=== PATIENT | male | born 1965 | race Caucasian/White ===

== ENCOUNTER 2016-09-03 02:00 | Inpatient (IN) | payer MEDICARE, OTHER ==
--- NOTE | ~2016-09-03 | PN ---
Unit #: [id number] #: [id number] Patient: JODI VENTURA [id number] [facility] [address] [place] [address] [id number] MR#: [id number] NAME: JODI VENTURA ROOM: P130 Age: 51 Sex: M Admission Date: 09/03/2016 : 1965 Attending Physician: dEer Vilalfuerte M.D. Admitting Physician: Eder Villafuerte M.D. Primary Care Physician: Primary Care Physician Tami BAPTISTE PROGRESS NOTES DATE 09/04/2016 DISCUSSION The patient is abed today. He is seclusive to room. He continues to complain of dysphoric mood and suicidal ideation as well as auditory hallucinations. He is complaining of difficulty breathing and will be restarted on his previously prescribed asthma inhalers. Dictated by... Eder Villafuerte M.D. CB/marisol TD: 09/04/2016 14:27 JOB #: [id number] EMILE DAN NOTES Page 1 of 1 X Eder Villafuerte MD PROGRESS NOTE
--- NOTE | ~2016-09-03 | PA ---
Unit #: [id number] #: [id number] Patient: JODI VENTURA [id number] [facility] [place] [address] [id number] MR#: [id number] NAME: JODI VENTURA. ROOM: 30 Age: 51 Sex: M Admission Date: 09/03/2016 : 1965 Date of Assessment: 09/03/2016 Attending Physician: Eder Villafuerte M.D. Admitting Physician: Eder Villafuerte M.D. Primary Care Physician: Primary Care Physician No PSYCHIATRIC ASSESSMENT REASON FOR ADMISSION The patient is a 51-year-old white male admitted to the [address] [place] [address] with worsening symptoms of psychosis and self mutilatory impulses. CHIEF COMPLAINT They changed my medicine. INFORMANT The patient, reliability if fair. HISTORY OF PRESENT ILLNESS The patient is a 51-year-old white male who was admitted to the [address] [place] [address] after he presented to this facility voicing positive suicidal ideation. The patient reports that they have "changed his medications" at [facility] and that he is now taking Seroquel, Zyprexa and Risperdal Consta. He has been taken off antidepressant medication per his report. The patient reports intrusive thoughts telling him to harm himself or set himself on fire and has been reporting increasing suicidal ideation and depressed mood. The patient denies abuse of any psychoactive substances. He was last discharged from this facility on 05/22/2016. For more complete history of present illness please refer to previous dictated noted. PAST PSYCHIATRIC HISTORY Reviewed no changes. PAST MEDICAL HISTORY Reviewed no changes. MEDICATIONS 1. Seroquel 2. Protonix 3. Restoril 4. Zyprexa 5. Cymbalta 6. Oxycodone These medications were ordered at the time of the patient's last hospitalization. ALLERGIES Butyrophenones (Haldol) FAMILY HISTORY Unit #: [id number] #: [id number] Patient: JODI VENTURA Reviewed no changes. SOCIAL HISTORY Reviewed no changes. MENTAL STATUS EXAMINATION At this time reveals the patient to be a thin white male appearing his stated age. He is in no apparent physical distress at the time of examination. He is awake, alert, and oriented in all spheres. His mood is dysphoric. His affect is flat. Speech is generally relevant and coherent. There are no gross deficits in memory or cognition noted. Intelligence is judged to be in the average range based on fund of knowledge. The patient is generally cooperative throughout the interview. He is currently endorsing positive suicidal ideation. He denies homicidal ideation. He reports positive command hallucinations. His judgement and insight appear to be significantly impaired. ASSETS AND LIABILITIES ASSETS: To be assessed. LIABILITIES: Lack of resources. ADMITTING DIAGNOSES Chronic paranoid schizophrenia verses schizoaffective disorder, chronic pain. PSYCHIATRIC PLAN/TREATMENT GOALS We will restart the medications as previously prescribed including Seroquel, Protonix, Protonix, Restoril as Zyprexa, Cymbalta and oxycodone. I do not see any justification for having the patient on three separate secondary generation antipsychotics as the brain has only so many dopaminergic receptors. I will restart Cymbalta in hopes of addressing the patient's intrusive thoughts and depressed mood and suicidal precautions remain in place. ESTIMATED LENGTH OF STAY Five to seven days. Dictated by... Eder Villafuerte M.D. MALIK/khushboo TD: 09/04/2016 01:53 JOB #: [id number] Unit #: [id number] #: [id number] Patient: JODI VENTURA PSYCHIATRIC ASSESSMENT Page 1 of 1 X Eder Villafuerte MD X PSYCHIATRIC ASSESSMENT
--- NOTE | ~2016-09-03 | PN ---
Unit #: [id number] #: [id number] Patient: JODI VENTURA [id number] [facility] [address] [place] [address] [id number] I MR#: [id number] NAME: JODI VENTURA ROOM: P130 Age: 51 Sex: M Admission Date: 09/03/2016 : 1965 Attending Physician: Eder Villafuerte M.D. Admitting Physician: Eder Villafuerte M.D. Primary Care Physician: Primary Care Physician Tami BAPTISTE PROGRESS NOTES DATE 09/09/2016 DISCUSSION The patient states that he feels "remarkably better" with reinitiation of Risperdal Consta. He is reporting suicidal ideation and is significantly brighter. He does look very much improved and should he sustain progress discharge will take likely place tomorrow. Dictated by... Eder Villafuerte M.D. CB/khushboo TD: 09/10/2016 03:45 JOB #: [id number] [facility] PROGRESS NOTES Page 1 of 1 X Eder Villafuerte MD X PROGRESS NOTE
--- NOTE | ~2016-09-03 | PN ---
Unit #: [id number] #: [id number] Patient: JODI VENTURA [id number] [facility] [address] [place] [address] [id number] I MR#: [id number] NAME: JODI VENTURA ROOM: P130 Age: 51 Sex: M Admission Date: 09/03/2016 : 1965 Attending Physician: Eder Villafuerte M.D. Admitting Physician: Eder Villafuerte M.D. Primary Care Physician: Primary Care Physician Tami DAN NOTES DATE 09/08/2016 DISCUSSION The patient remains abed and seclusive to room. He continues to complain of nausea. We await his administration of Risperdal Const to see if there would be any reduction in his psychotic symptoms with this rather usual polypharmacy. Dictated by... Eder Villafuerte M.D. CB/bzg TD: 09/08/2016 14:35 JOB #: [id number] EMILE PROGRESS NOTES Page 1 of 1 X Eder Villafuerte MD PROGRESS NOTE
--- NOTE | ~2016-09-03 | PN ---
Unit #: [id number] #: [id number] Patient: JODI VENTURA [id number] [facility] [address] [place] [address] [id number] I MR#: [id number] NAME: JODI VENTURA ROOM: P130 Age: 51 Sex: M Admission Date: 09/03/2016 : 1965 Attending Physician: Eder Villafuerte M.D. Admitting Physician: Eder Villafuerte M.D. Primary Care Physician: Primary Care Physician Tami BAPTISTE PROGRESS NOTES DATE 09/07/2016 DISCUSSION The patient remains abed and continues to complain of severely depressed mood, dysphoric and suicidal ideation. He requests re-initiation of Risperdal Consta. I have spoken with the patient regarding the fact that this will represent 3 separate second generation antipsychotics which he will be using. However, the patient persists in his belief that he needs this medication to address his ongoing seemingly refractory auditory hallucinations. We will go ahead and order Risperdal Consta to continue with the patient's other 2 second generation antipsychotics. Dictated by... Eder Villafuerte M.D. CB/miki TD: 09/07/2016 19:54 JOB #: [id number] EMILE DAN NOTES Page 1 of 1 X Eder Villafuerte MD PROGRESS NOTE
--- NOTE | ~2016-09-03 | DS ---
Unit #: [id number] #: [id number] Patient: JODI VENTURA [id number] [facility] [address] [place] [address] [id number] I MR#: [id number] NAME: JODI VENTURA ROOM: P130 Age: 51 Sex: M Admission Date: 09/03/2016 : 1965 Discharge Date: 09/11/2016 Attending Physician: Eder Villafuerte M.D. Primary Care Physician: Primary Care Physician No DISCHARGE SUMMARY REASON FOR ADMISSION The patient is a 51-year-old white male, admitted with recurrence of suicidal ideation and self-mutilatory impulses, and psychosis. HOSPITAL COURSE The patient was admitted to the [address] [place] [address] unit and restarted on previously prescribed medications including Seroquel, Protonix, Restoril, Cymbalta, oxycodone, and Zyprexa. The patient requested also that he will be restarted on Risperdal Consta. This physician was initially hesitant to place the patient on three antipsychotics; however, the patient remained very dysphoric, flat, and hopeless. He stated that he felt as though, re-initiation of Risperdal Consta would be helpful and so this physician did and ordered this medication be added. On 09/07/2016, the patient's response to that medication was nearly miraculous as he showed great brightening in mood and affect. By 09/11/2016, the patient was in bright spirits and requested discharge. It was so ordered. FINAL DIAGNOSES Chronic paranoid schizophrenia, chronic pain, gastroesophageal reflux disease. DISPOSITION ON DISCHARGE The patient is discharged on the following medications: Seroquel 200 mg b.i.d. and 400 mg at bedtime for psychosis, Protonix 40 mg daily for GERD, Restoril 30 mg at h.s. p.r.n. insomnia, Zyprexa 30 mg at h.s. for psychosis, Cymbalta 90 mg daily for depression, oxycodone 10/325 one tablet q.12 hours p.r.n. pain, Risperdal Consta 50 mg for psychosis, last dose given on 09/07/2016. FOLLOWUP The patient will follow through the auspices of [facility]. PROGNOSIS His prognosis is considered fair. Dictated by... Eder Villafuerte M.D. CB/kari Unit #: [id number] #: [id number] Patient: JODI VENTURA TD: 09/11/2016 16:25 JOB #: [id number] DISCHARGE SUMMARY Page 1 of 1 X Eder Villafuerte MD X DISCHARGE SUMMARY
--- NOTE | ~2016-09-03 | PN ---
Unit #: [id number] #: [id number] Patient: JODI VENTURA [id number] [facility] [address] [place] [address] [id number] I MR#: [id number] NAME: JODI VENTURA ROOM: P130 Age: 51 Sex: M Admission Date: 09/03/2016 : 1965 Attending Physician: Eder Villafuerte M.D. Admitting Physician: Eder Villafuerte M.D. Primary Care Physician: Primary Care Physician Tami BAPTISTE PROGRESS NOTES DATE 09/10/2016 DISCUSSION The patient reports that he is feeling better and appears to be nearing baseline should he sustain progress discharge could take place as early as tomorrow. Dictated by... Eder Villafuerte M.D. CB/khushboo TD: 09/10/2016 23:00 JOB #: [id number] [facility] PROGRESS NOTES Page 1 of 1 X Eder Villafuerte MD X PROGRESS NOTE
--- NOTE | ~2016-09-03 | HP ---
Unit #: [id number] #: [id number] Patient: SHELDON VENTURA [id number] [place] [address] [id number] I MR#: [id number] NAME: SHELDON VENTURA. ROOM: P130 Age: 51 Sex: M Admission Date: 09/03/2016 : 1965 Attending Physician: Eder Villafuerte M.D. Admitting Physician: Eder Villafuerte M.D. Primary Care Physician: Primary Care Physician No HISTORY AND PHYSICAL HISTORY OF PRESENT ILLNESS Sheldon is a 51 year old admitted to [address] [place] [address] with depression verbalizing wanting to hurt himself. He has had numerous admissions to this facility. PAST MEDICAL HISTORY 1. COPD. 2. High blood pressure. PAST SURGICAL HISTORY 1. Appendectomy. 2. Rhinoplasty. 3. Open abdomen, exploratory. 4. Oral allergies. ALLERGIES No known drug allergies. SOCIAL HISTORY Smokes one pack per day. Denies alcohol and illicit drug use. FAMILY HISTORY Medically noncontributory. REVIEW OF SYSTEMS CONSTITUTIONAL: No fever or chills. HEENT: Denies any sore throat, ear pain or runny nose. CARDIOVASCULAR: Denies chest pain, irregular heart rhythm or palpitations. CHEST: Denies shortness of breath or cough. No hemoptysis. GASTROINTESTINAL: Denies nausea, vomiting, diarrhea or chronic constipation. ENDOCRINE: Denies history of increased thirst or urination. No recent significant weight loss or gain. GENITOURINARY: Denies dysuria, frequency, or hematuria. SKIN: Denies any rashes. HEMATOLOGIC: Denies history of increased bleeding or bruising. MUSCULOSKELETAL: Denies any hot, swollen joints. No generalized muscle pain. NEUROLOGIC: Denies problems with vision or speech. No frequent, severe headaches. No numbness, tingling or weakness in any extremities. Denies loss of bladder or bowel control. CURRENT MEDICATIONS 1. Cymbalta 90 mg q. day. Unit #: [id number] #: [id number] Patient: SHELDON VENTURA 2. Protonix 40 mg q. day. 3. Zyprexa 20 mg q.h.s. 4. Zyprexa Zydis 10 mg q.h.s. 5. Temazepam 30 mg q.h.s. 6. Seroquel 200 mg t.i.d., 400 mg q.h.s. 7. Percocet 10/325, 1 tab q. 12 hours p.r.n. 8. Milk of Magnesia p.r.n. 9. Maalox p.r.n. 10. Tylenol p.r.n. 11. Nicotine patch 14 mg q. day. PHYSICAL EXAMINATION GENERAL: Alert, thin. No apparent distress. VITAL SIGNS: Blood pressure 132/92, heart rate 80, respirations 16, and temperature 98.6. WEIGHT: 130. HEIGHT: 5 feet 10 inches. SKIN: Warm and dry without rash or lesion. HEENT: Normocephalic. TMs not viewed. Oral and nasal passages clear. Conjunctivae clear. PERRLA. EOMs intact. NECK: Supple without lymphadenopathy or thyromegaly. HEART: Regular rate and rhythm without murmur. LUNGS: Clear. ABDOMEN: Soft, nontender. : Not done. EXTREMITIES: No evidence of cyanosis, clubbing or edema. Moves all without focal deficit. NEUROLOGICAL: Grossly within normal limits. Cranial Nerves: II: Visual cornejo are intact. III, IV AND : Extraocular movements are intact. Pupils are equal, round and reactive to light. V: Facial sensation is grossly normal. VII: Facial movements and expression are normal. VIII: Auditory acuity grossly intact. IX, X: Uvula is midline. Phonation is normal. XI: Patient shrugs shoulders and turns head normally. XII: Tongue protrudes in the midline. Sensory and Motor Function: Sensory and motor sensation is grossly normal. Motor: moves all extremities well. Coordination: Gait is normal. Deep Tendon Reflexes: Intact. IMPRESSION Psychiatric admission. RECOMMENDATIONS PSYCHIATRIC: Per psychiatrist. MEDICAL: I see no contraindication to participate in this facility's activities. MEDICAL PROGNOSIS Good. MEDICAL CONDITION Stable. Dictated by... Ratna Ross P.A.-C. for Unit #: [id number] #: [id number] Patient: SHELDON VENTURA Elsi Foley/marisol TD: 09/04/2016 11:20 JOB #: [id number] HISTORY AND PHYSICAL Page 1 of 1 X Ratna Ross HISTORY AND PHYSICAL
--- NOTE | ~2016-09-03 | PN ---
Unit #: [id number] #: [id number] Patient: JODI VENTURA [id number] [facility] [address] [place] [address] [id number] I MR#: [id number] NAME: JODI VENTURA ROOM: P130 Age: 51 Sex: M Admission Date: 09/03/2016 : 1965 Attending Physician: Eder Villafuerte M.D. Admitting Physician: Eder Villafuerte M.D. Primary Care Physician: Primary Care Physician Tami BAPTISTE PROGRESS NOTES DATE 09/06/2016 DISCUSSION The patient remains seclusive to room and today complains of significant nausea. We will initiate p.rclaire Badillo to address these symptoms. I have encouraged the patient to increase his participation within the therapeutic milieu. He continues to endorse hopelessness and suicidal ideations as well as ongoing auditory hallucinations. Dictated by... Eder Villafuerte M.D. CB/miki TD: 09/06/2016 15:45 JOB #: [id number] EMILE PROGRESS NOTES Page 1 of 1 X Eder Villafuerte MD X PROGRESS NOTE
--- NOTE | ~2016-09-03 | PN ---
Unit #: [id number] #: [id number] Patient: JODI VENTURA [id number] [facility] [address] [place] [address] [id number] I MR#: [id number] NAME: JODI VENTURA ROOM: P130 Age: 51 Sex: M Admission Date: 09/03/2016 : 1965 Attending Physician: Eder Villafuerte M.D. Admitting Physician: Eder Villafuerte M.D. Primary Care Physician: Primary Care Physician Tami BAPTISTE PROGRESS NOTES DATE 09/05/2016 DISCUSSION The patient remains seclusive to room and continues to endorse positive auditory hallucinations and suicidal thinking. We continue current aggressive pharmacotherapy. Dictated by... Eder Villafuerte M.D. CB/miki TD: 09/05/2016 15:13 JOB #: [id number] [facility] PROGRESS NOTES Page 1 of 1 X Eder Villafuerte MD X PROGRESS NOTE
== END 2016-09-11 12:00 | disposition home or self-care (01) | DRG 885 ==
LOC: P1S 09:17
DX: F20.0 Paranoid schizophrenia (principal); R45.851 Suicidal ideations; G89.29 Other chronic pain; Z88.8 Allergy status to other drugs, medicaments and biological substances; J44.9 Chronic obstructive pulmonary disease, unspecified; F17.210 Nicotine dependence, cigarettes, uncomplicated
CPT/HCPCS: 36415; 71010; 80048; 80076; 80307; 81003; 82553; 84484; 85025; 85379; 93005; 99285; G0480; J2794

== ENCOUNTER 2016-10-24 17:21 | Inpatient (IN) | payer MEDICARE, OTHER ==
[~2016-10-24] VITALS: Ht 177.8 cm; Wt 59.0 kg
--- NOTE | ~2016-10-24 | PN ---
Unit #: [id number] #: [id number] Patient: SHELDON VENTURA [id number] [facility] [address] [place] [address] [id number] I MR#: [id number] NAME: SHELDON VENTURA. ROOM: P131 Age: 51 Sex: M Admission Date: 10/24/2016 : 1965 Attending Physician: Phu Solis M.D. Admitting Physician: Phu Solis M.D. Primary Care Physician: Generic Doctor Not In System [facility] PROGRESS NOTES DATE 10/28/2016 DISCUSSION Sheldon continues to be in bed for much of the day. Staff reports that he is occasionally seeking additional medications and is otherwise noncooperative with groups and activities. His mood is depressed with a flat affect and slow speech. He reports ongoing suicidal thoughts and psychosis. ASSESSMENT Schizoaffective order. PLAN Continue current treatment plan. Dictated by... Elsi Larose/khushboo TD: 10/29/2016 23:31 JOB #: [id number] [facility] PROGRESS NOTES Page 1 of 1 X Phu Solis MD X PROGRESS NOTE
--- NOTE | ~2016-10-24 | DS ---
Unit #: [id number] #: [id number] Patient: SHELDON LLAMAS [id number] [facility] [address] [place] [address] [id number] I MR#: [id number] NAME: SHELDON LLAMAS. ROOM: P131 Age: 51 Sex: M Admission Date: 10/24/2016 : 1965 Discharge Date: 10/29/2016 Attending Physician: Phu Solis M.D. Primary Care Physician: Generic Doctor Not In System DISCHARGE SUMMARY REASON FOR ADMISSION Mr. Llamas is a 51-year-old man well known to me from a previous admission who was dropped off by his father after he said he "just wanted to end my life." He was admitted for stabilization. DIAGNOSTIC STUDIES LABORATORY DATA: Please see hospital chart. HOSPITAL COURSE Sheldon was admitted and placed on suicide precautions. He was restarted on his home medications one they were all confirmed and Cymbalta was increased to 90 mg daily. He participated briefly in unit groups and activities but was able to contract for safety on the date of discharge. His speech was more spontaneous, mood better and a brighter affect. DISCHARGE DIAGNOSES Wister I Schizoaffective disorder, bipolar type. Wister II No diagnosis. Wister III History of chronic pain. Wister IV Wister V FOLLOWUP CARE Instructed the patient to follow up with [facility] for mental healthcare and primary care physician. DISCHARGE MEDICATIONS 1. Cymbalta 90 mg daily for depression. Other medications continued unchanged were: 2. Zyprexa 30 mg at bedtime for psychosis. 3. Seroquel 200 mg twice daily and 400 mg at bedtime for psychosis. 4. Protonix 40 mg daily for GERD. 5. Proventil inhaler two puffs every 4 hours as needed for shortness of air. 6. Metronidazole ointment applied to skin once daily for rosacea. 7. Percocet 10/325 by mouth twice daily as needed for pain. CONDITION AT DISCHARGE Improved. PROGNOSIS Fair to good. Unit #: [id number] #: [id number] Patient: SHELDON LLAMAS DIET AND ACTIVITY Per primary care doctor. Dictated by... Phu Solis M.D. [facility]/noreen TD: 10/31/2016 12:52 JOB #: [id number] DISCHARGE SUMMARY Page 1 of 1 X Phu Solis MD DISCHARGE SUMMARY
--- NOTE | ~2016-10-24 | A ---
[facility] DATE: 10/26/16 Patient: JODI VENTURA Physician: JORDY Address: [address] [place] [address] [facility]ACE Room/Bed: [address] [place] [address], Zip: [place] [address] Admit Date: 10/24/16 Date of : [birth year] Height: 5 10 Weight: [phone] NUTRITIONAL ASSESSMENT: REASON: LOW BMI (18.5) PATIENT ADMITTED FOR SI PMH: COPD, HTN, SPINAL STENOSIS Anthropometrics: HT: 70", WT: 129#, BMI: 18.5, %IBW: 78 Labs: 10/25/16- ALL NUTRITIONAL LABS WNL Meds: ZYPREXA, CYMBALTA, SEROQUEL, PROTONIX, PERCOCET Assessment: PATIENT IS A 51 Y/O MALE ADMITTED FOR SI. PATIENT IS CURRENTLY UNEMPLOYED, ON DISABILITY, LIVES WITH PARENTS, AND DENIES ANY SUBSTANCE ABUSE. HE HAS VERY FREQUENT ADMISSIONS TO THIS FACILITY. RD HAS ASSESSED PATIENT 9X IN THE LAST YEAR- NOTES REVIEWED. UPON ADMIT PATIENT STATED A POOR APPETITE WITH A 30# WEIGHT LOSS X MONTHS, AND HE HAS NOT BEEN SLEEPING. WEIGHT HX PER [facility] SHOWS NO WEIGHT CHANGE X 1 MONTH AND NO SIGNIFICANT WEIGHT CHANGES IN THE LAST 10 YERAS. HIS UBW SEEMS TO BE ~130-140#. NURSING REPORTS FAIR PO INTAKES. THERE ARE NO SKIN OR GI ISSUES NOTED ATT. CURRENT PSYCH MEDS MAY CAUSE FLUCTUATIONS IN WEIGHT AND APPETITE. PATIENT IS ON A REGULAR DIET. Dx: INADEQUATE NUTRIENT INTAKE R/T CURRENT CONDITION AEB LOW BMI, <90% IBW Intervention: REGULAR DIET, MEDS PER MD, PSYCH Monitoring, Evaluation and Goals: 1. ADEQUATE PO INTAKES >50-75% OF MEALS 2. WEIGHT; PROMOTE A STEADY WEIGHT GAIN TOWARDS A HEALTHY BMI OF 19-25, PREVENT ANY WEIGHT LOSS MONITOR; WEIGHTS, LABS, PO/FLUID INTAKES Recommendations: 1. CONTINUE REGULAR DIET TOLERATED. OFFER SNACKS BETWEEN MEALS. WILL INCREAES ENTREES TO LARGER PORTIONS D/T NEED FOR INCREASED CALORIC INTAKE 2. ENCOURAGE ADEQUATE PO AND FLUID INTAKES 3. OBTAIN WEIGHTS ROUTINELY (EVERY 3-4 DAYS) 4. IF PO INTAKES ARE BELOW 50% OF MEALS, OR PATIENT HAS C/O HUNGER PLEASE ORDER ENSURE BID TO PROMOTE ADEQUATE KCAL AND PROTEIN INTAKES [facility] DATE: 10/26/16 Patient: JODI VENTURA Physician: JORDY Address: [address] [place] [address] Room/Bed: [address], Zip: [place] [address] Admit Date: 10/24/16 Date of : [birth year] Height: 5 10 Weight: [phone] TO F/U PER PROTOCOL AND PRN R/T PATIENT MILDLY COMPROMISED Respectfully, MAXI GONG RD, LD [facility] cc: client file
--- NOTE | ~2016-10-24 | HP ---
Unit #: [id number] #: [id number] Patient: JODI VENTURA [id number] [place] [address] [id number] MR#: [id number] NAME: JODI VENTURA. ROOM: P131 Age: 51 Sex: M Admission Date: 10/24/2016 : 1965 Attending Physician: Phu Solis M.D. Admitting Physician: Phu Solis M.D. Primary Care Physician: Generic Doctor Not In System HISTORY AND PHYSICAL HISTORY OF PRESENT ILLNESS Patient is a 51-year-old male admitted to [address] [place] [address] on 10/24/2016 for suicidal ideations. PAST MEDICAL HISTORY 1. COPD. 2. Hypertension. 3. Spinal stenosis. PAST SURGICAL HISTORY 1. Appendectomy. 2. Rhinoplasty. 3. Exploratory surgery. 4. Oral surgery. ALLERGIES Haldol, Geodon and butyrophenones. SOCIAL HISTORY He is unemployed and disabled. He lives with his parents. He denies alcohol, tobacco and drug use. FAMILY HISTORY Noncontributory. REVIEW OF SYSTEMS CONSTITUTIONAL: No fever or chills. HEENT: Denies any sore throat, ear pain or runny nose. CARDIOVASCULAR: Denies chest pain, irregular heart rhythm or palpitations. CHEST: Denies shortness of breath or cough. No hemoptysis. GASTROINTESTINAL: Denies nausea, vomiting, diarrhea or chronic constipation. ENDOCRINE: Denies history of increased thirst or urination. No recent significant weight loss or gain. GENITOURINARY: Denies dysuria, frequency, or hematuria. SKIN: Denies any rashes. HEMATOLOGIC: Denies history of increased bleeding or bruising. MUSCULOSKELETAL: He complains of back pain. NEUROLOGIC: Denies problems with vision or speech. No frequent, severe headaches. No numbness, tingling or weakness in any extremities. Denies loss of bladder or bowel control. CURRENT MEDICATIONS Unit #: [id number] #: [id number] Patient: JODI VENTURA 1. Seroquel. 2. Protonix. 3. Restoril. 4. Zyprexa. 5. Cymbalta. 6. Oxycodone. PHYSICAL EXAMINATION GENERAL: He is awake, alert, oriented, in no acute distress. VITAL SIGNS: Temperature 98.0, heart rate 82, respirations 18, blood pressure 122/94. HEIGHT: 5 feet 10. WEIGHT: 129 pounds. SKIN: Warm and dry without rash or lesion. HEENT: Normocephalic. TMs not viewed. Oral and nasal passages clear. Conjunctivae clear. PERRLA. EOMs intact. NECK: Supple without lymphadenopathy or thyromegaly. HEART: Regular rate and rhythm without murmur. LUNGS: Clear. ABDOMEN: Soft, nontender. : Not done. EXTREMITIES: No evidence of cyanosis, clubbing or edema. Moves all without focal deficit. NEUROLOGICAL: Grossly within normal limits. Cranial Nerves: II: Visual cornejo are intact. III, IV AND : Extraocular movements are intact. Pupils are equal, round and reactive to light. V: Facial sensation is grossly normal. VII: Facial movements and expression are normal. VIII: Auditory acuity grossly intact. IX, X: Uvula is midline. Phonation is normal. XI: Patient shrugs shoulders and turns head normally. XII: Tongue protrudes in the midline. Sensory and Motor Function: Sensory and motor sensation is grossly normal. Motor: moves all extremities well. Coordination: Gait is normal. Deep Tendon Reflexes: Intact. IMPRESSION 1. Psychiatric admission. 2. Chronic obstructive pulmonary disease. 3. Hypertension. 4. Spinal stenosis causing back pain. RECOMMENDATIONS PSYCHIATRIC: Per psychiatrist. MEDICAL: No contraindication to participate in facility's activities. MEDICAL PROGNOSIS Fair. MEDICAL CONDITION Stable. Dictated by... Anuja Grullon A.P.R.N. Unit #: [id number] #: [id number] Patient: JODI VENTURA PAT/miki TD: 10/25/2016 23:15 JOB #: [id number] HISTORY AND PHYSICAL Page 1 of 1 X ANUJA GRULLON APRN HISTORY AND PHYSICAL
--- NOTE | ~2016-10-24 | PA ---
Unit #: [id number] #: [id number] Patient: SHELDON LLAMAS [id number] [place] [address] [id number] MR#: [id number] NAME: SHELDON LLAMAS. ROOM: P131 Age: 51 Sex: M Admission Date: 10/24/2016 : 1965 Date of Assessment: Attending Physician: Phu Solis M.D. Admitting Physician: Phu Solis M.D. PSYCHIATRIC ASSESSMENT DATE OF SERVICE 10/25/2016. INFORMANTS The patient reliable; OLOP, reliable. CHIEF COMPLAINT Suicidal ideation. HISTORY OF PRESENT ILLNESS Sheldon Llamas is a 51-year-old man, well known to me from multiple previous admissions. He was dropped off by his father after stating he "just wanted to end my life" with no specific precipitant. He continues to report auditory hallucinations and multiple family stressors. He claimed compliance with his medications. He was admitted for stabilization and reassessment. PAST PSYCHIATRIC HISTORY Last admission was in 08/2016. The patient has had multiple admissions to this facility for diagnosis of schizophrenia versus schizoaffective disorder, and is typically one high doses of multiple medications including Zyprexa, Seroquel, Cymbalta, and Restoril. FAMILY PSYCHIATRIC HISTORY Reviewed with no changes. SOCIAL HISTORY The patient is single and on long-term disability. He lives with his family. PAST MEDICAL HISTORY Significant for reports of chronic pain. MEDICATIONS Oxycodone. ALLERGIES No known medication allergies. SUBSTANCE USE HISTORY No known history of chemical dependence. MENTAL STATUS EXAMINATION Unit #: [id number] #: [id number] Patient: SHELDON LLAMAS The patient presented as a thin mildly disheveled man, who appeared his stated age. He was cooperative with the examination. Speech was sparse, but easily understood. Musculoskeletal examination was calm. His mood was depressed with a flat affect. He was alert and fully oriented. His memory and concentration were fair. His thought processes were goal directed with no active psychosis. He did not appear to be responding to internal stimuli at the time of my assessment. He continued to assert suicidal ideation, and could not contract for safety outside of the hospital. ASSETS AND LIABILITIES The patient has supportive family and is connected with caregivers. Liabilities include lack of response. ADMITTING DIAGNOSES AXIS I: Schizoaffective disorder bipolar type. AXIS II: No diagnosis. AXIS III: Chronic pain. AXIS IV: AXIS V: PSYCHIATRIC PLAN The patient was admitted and placed on suicide precautions. His home medications will be restarted once they were confirmed, and we will specially go gradually with his high dose antipsychotics. He will enroll in dual diagnosis groups and activities. TREATMENT GOALS Resolution of SI, improvement in insight, and improvement in coping skills. DISCHARGE PLANNING Follow up with [facility]. ESTIMATED LENGTH OF STAY 5 days. Dictated by... Phu Solis M.D. JOHANNE/kari TD: 10/28/2016 11:24 JOB #: [id number] PSYCHIATRIC ASSESSMENT Page 1 of 1 X Phu Solis MD PSYCHIATRIC ASSESSMENT
--- NOTE | ~2016-10-24 | PN ---
Unit #: [id number] #: [id number] Patient: SHELDON VENTURA [id number] [facility] [address] [place] [address] [id number] MR#: [id number] NAME: SHELDON VENTURA. ROOM: P131 Age: 51 Sex: M Admission Date: 10/24/2016 : 1965 Attending Physician: Phu Solis M.D. Admitting Physician: Phu Solis M.D. Primary Care Physician: Generic Doctor Not In System [facility] PROGRESS NOTES DATE OF SERVICE 10/26/2016 DISCUSSION Sheldon continues to complain of depression and hopelessness today. He is quite intent on going back on his Hydrocodone and this has been confirmed through urinalysis testing. His mood remains depressed with a flat affect. He is alert and fully oriented with no evidence of psychosis although some reports of auditory hallucinations. He continues to assert suicidal ideation. ASSESSMENT Schizoaffective disorder. PLAN Continue current treatment plan, providing patient's medical treatments as needed. Dictated by... Elsi Larose/khushboo TD: 10/29/2016 22:48 JOB #: [id number] [facility] PROGRESS NOTES Page 1 of 1 X Phu Solis MD PROGRESS NOTE
[2016-10-25 09:49] LABS: BASOPHIL# 0.1 X10e3 (0-0.3); BASOPHIL% 0.8 % (0-2.5); EOSINOPHIL# 0.3 X10e3 (0-0.7); EOSINOPHIL% 3.4 % (0.0-7.0); HEMATOCRIT 40.5 % (38.0-50.0); HEMOGLOBIN 13.7 gm/dL (13.0-16.0); LYMPHOCYTE# 1.8 X10e3 (1.0-3.5); LYMPHOCYTE% 24.8 % (17.0-45.0); MEAN CELL VOLUME 91.1 FL (83-96); MEAN CORPUSCULAR HEMOGLOBIN 30.9 PG (28-34); MEAN CORPUSCULAR HGB CONC 33.9 g/dL (30-36); MEAN PLATELET VOLUME 8.1 FL (6.5-11.5); MONOCYTE# 0.6 X10e3 (0-1.0); MONOCYTE% 8.2 % (3.0-12.0); NEUTROPHIL# 4.6 X10e3 (1.5-7.1); NEUTROPHIL% 62.8 % (40-75); PLATELET COUNT 305 X10e3 (140-420); RED BLOOD COUNT 4.45 X10e (3.90-5.60); RED CELL DISTRIBUTION WIDTH 13.8 % (11.0-15.5); WHITE BLOOD COUNT 7.3 X10e3 (4.0-10.5)
[2016-10-25 09:50] LABS: DIFF IND NO
[2016-10-25 09:58] LABS: URINE APPEARANCE CLEAR; URINE BILIRUBIN NEG (NEG); URINE BLOOD NEG (NEG); URINE COLOR YELLOW; URINE GLUCOSE NEG (NEG); URINE KETONE NEG (NEG); URINE LEUKOCYTE ESTERASE NEG (NEG); URINE NITRATE NEG (NEG); URINE PROTEIN NEG (NEG); URINE SPECIFIC GRAVITY 1.016 (1.003-1.035); URINE UROBILINOGEN 0.2 MG/DL (NEG)
[2016-10-25 10:11] LABS: BILIRUBIN,TOTAL 0.9 mg/dL (0.2-2.0); BUN/CREATININE RATIO 15.71; CALCIUM SERUM 9.3 mg/dL (8.4-10.2); CREATININE SERUM 0.7 mg/dL (0.6-1.4); GLOM FILT RATE Estimated 109.3 mL/min (>60); POTASSIUM 4.4 mmol/L (3.5-5.1); PROTEIN TOTAL SERUM 6.3 g/dL (6.0-8.3)
[2016-10-25 11:03] LABS: AMPHETAMINE NEG (NEG); BARBITURATES NEG (NEG); BENZODIAZEPINES POS (NEG); COCAINE NEG (NEG); MARIJUANA NEG (NEG); OPIATES POS (NEG); TRICYCLIC ANTIDEPRESSANTS POS (NEG); U METHADONE NEG (NEG)
== END 2016-10-29 14:16 | disposition home or self-care (01) | DRG 885 ==
LOC: P1S 19:21
PROVIDERS: Psychiatry & Neurology Psychiatry
DX: F25.0 Schizoaffective disorder, bipolar type (principal); I10 Essential (primary) hypertension; G89.29 Other chronic pain; J44.9 Chronic obstructive pulmonary disease, unspecified
CPT/HCPCS: 80053; 80307; 81003; 85025